=== PATIENT | male | born 1990 | race African-American/Black ===

== ENCOUNTER 2022-03-14 12:03 | Emergency (ER) | payer MEDICAID ==
[~2022-03-14] VITALS: Ht 157.5 cm; Wt 69.0 kg
[2022-03-14 12:10] VITALS: BP 120/81
[2022-03-14] MEDS ORDERED: SODIUM CHLORIDE 0.9% 1,000 ML IV ONE (13:45)
== END 2022-03-14 16:05 | disposition left against medical advice (07) ==
LOC: ER 12:03
DX: R20.0 Anesthesia of skin (principal); R20.2 Paresthesia of skin
CPT/HCPCS: 99281; J7030

== ENCOUNTER 2022-03-24 09:23 | Emergency (ER) | payer MEDICAID ==
[~2022-03-24] VITALS: Ht 177.8 cm; Wt 80.0 kg
[2022-03-24 10:43] LABS: BASOPHILS % 0.2 % (0.0-2.0); EOSINOPHILS % 0.9 % (0.0-5.0); HEMATOCRIT. 42.2 % (42.0-52.0); HEMOGLOBIN. 14.2 g/dL (14.0-18.0); LYMPHOCYTES % 8.5 % (20.0-50.0); MEAN CORPUSCULAR HEMOGLOBIN 30.3 pg (28.0-32.0); MEAN CORPUSCULAR VOLUME 90.3 fL (80.0-94.0); MONOCYTES % 6.7 % (2.0-8.0); NEUTROPHILS % 83.7 % (40.0-76.0); PLATELET 325 x1000/uL (130-400); RED BLOOD CELL COUNT 4.67 mill/uL (4.7-6.1); RED CELL DISTRIBUTION WIDTH 13.5 % (11.6-14.6)
[2022-03-24 10:49] LABS: CHLORIDE 99 mEq/L (98-107)
[2022-03-24 10:59] LABS: ETHANOL BLOOD < 10 mg/dL
[2022-03-24 11:54] VITALS: BP 122/70
[2022-03-24] MEDS ORDERED: NALO4SPR BOTHNSTRLS (12:00)
== END 2022-03-24 12:10 | disposition home or self-care (01) ==
LOC: ER 09:51
DX: T50.7X1A Poisoning by analeptics and opioid receptor antagonists, accidental (unintentional), initial encounter (principal); X58.XXXA Exposure to other specified factors, initial encounter
CPT/HCPCS: 36415; 80053; 80307; 80320; 80329; 85025; 99283; G0480

== ENCOUNTER 2022-12-15 21:47 | Emergency (ER) | payer MEDICAID ==
[~2022-12-15] VITALS: Ht 177.8 cm; Wt 69.0 kg
[~2022-12-15 21:47] MED LIST: NALO4SPR BOTHNSTRLS
[2022-12-15 21:50] VITALS: BP 137/86; PULSE 103; RESP 12; TEMP 97.6; O2SAT 98
[2022-12-15] MEDS ORDERED: NALO4SPR BOTHNSTRLS (22:15)
== END 2022-12-15 22:45 | disposition home or self-care (01) ==
LOC: ER 21:47
DX: T40.601A Poisoning by unspecified narcotics, accidental (unintentional), initial encounter (principal); X58.XXXA Exposure to other specified factors, initial encounter
CPT/HCPCS: 99283